=== PATIENT | female | born 1955 | race Caucasian/White ===

== ENCOUNTER 2017-05-09 09:59 | Day surgery (SDC) | payer BC, OTHER ==
[~2017-05-09 09:59] MED LIST: Buffered Lidocaine 0.9% SYRIN* 5 ML/SYR SYRINGE INTRADERM ONE
[2017-05-09] MEDS ORDERED: Proparacaine 0.5% OPHTH.SOL* 15 ML BTL ONE (13:06)
[2017-05-09] MEDS ORDERED: Lidocaine 1% MPF* 2 ML VIAL ONE (13:06)
[2017-05-09] MEDS ORDERED: Phenylephrine 2.5% OPTH.SOL* 2 ML BTL ONE (13:06)
[2017-05-09] MEDS ORDERED: Povidone Iodine 5% OPTH* 30 ML BTL ONE (13:06)
[2017-05-09] MEDS ORDERED: acetaZOLAMIDE TAB* 250 MG ONE (13:06)
[2017-05-09] MEDS ORDERED: Flurbiprofen 0.03% OPTH.SOL* 2.5 ML BTL ONE (13:06)
[2017-05-09] MEDS ORDERED: Buffered Lidocaine 0.9% SYRIN* 5 ML/SYR SYRINGE ONE (13:06)
[2017-05-09] MEDS ORDERED: Lidocaine 1% MPF wEPI 200,000* 30 ML SDV ONE (13:06)
[2017-05-09] MEDS ORDERED: Neomycin/Polymy/Dex OPTH.SUSP* MAXITROL 0.1% 5 ML ONE (13:06)
[2017-05-09] MEDS ORDERED: Cyclopentolate 1% OPTH.SOL* 2 ML BTL ONE (13:06)
[2017-05-09] MEDS ORDERED: Midazolam* 1 MG/ML 2 ML VIAL (2 MG) ONE (13:21)
[2017-05-09] MEDS ORDERED: Lidocaine 2% PF * 5 ML VIAL ONE (13:36)
[2017-05-09] MEDS ORDERED: Propofol* 10 MG/ML 20 ML BTL IV PUSH ONE (13:36)
[2017-05-09 14:09] VITALS: BP 127/69
--- NOTE | 2017-05-10 09:30 | OP ---
DATE OF OPERATION: 05/09/17 [facility] DATE OF : 53 SURGEON: Fabio Patricia MD PREOPERATIVE DIAGNOSIS: Cataract, left eye. POSTOPERATIVE DIAGNOSIS: Cataract, left eye. OPERATIVE PROCEDURE: Phacoemulsification, left eye with IOL. DESCRIPTION OF PROCEDURE: The patient was brought to the operating room after being given 1/2% Alcaine with epinephrine drops in the preoperative area. The eye was prepped and draped in the usual sterile fashion. Sterile drape and eyelid speculum were placed. Again, topical 1/2% Alcaine with epinephrine was given. A paracentesis incision was made at the 3 o'clock position with the No.75 blade. Clear cornea incision 2.2 x 2.2-mm was created at the 6 o'clock position starting at the anterior limbus using the 2.2-mm keratome. The anterior chamber was irrigated with 0.4 mL of 1% non-preservative intracameral lidocaine and filled with DisCoVisc. A capsulorrhexis was completed using the cystotome and the Utrata forceps. Hydrodissection was performed with balanced salt solution. The lens nucleus was removed with the Phacoemulsification handpiece without incident. Cortex was removed with the irrigation-aspiration handpiece. The capsular bag was re-inflated using DisCoVisc and an implant [id number] was inserted with the shooter, oriented to the 101-degree meridian. Horizontal reference gutierrez were made with the patient in the preoperative area in a seated position. The irrigation-aspiration handpiece was used to remove all residual DisCoVisc. The eye was refilled with balanced salt solution and the wound checked and found to be watertight. Topical Maxitrol drops were given. [id number]/[facility] #: [id number] MTDD
== END 2017-05-09 14:08 | disposition home or self-care (01) ==
LOC: OREAST 09:59
PROVIDERS: ATTEND Specialist
DX: H25.12 Age-related nuclear cataract, left eye (principal); I10 Essential (primary) hypertension; H35.373 Puckering of macula, bilateral; F17.210 Nicotine dependence, cigarettes, uncomplicated
CPT/HCPCS: A9270-GY; J2001; J2250; J2704; V2787

== ENCOUNTER 2017-05-16 09:32 | Day surgery (SDC) | payer BC, OTHER ==
[~2017-05-16 09:32] MED LIST changes: +Acetaminophen TAB* 325 MG PO PRN; -Buffered Lidocaine 0.9% SYRIN* 5 ML/SYR SYRINGE INTRADERM ONE; +Buffered Lidocaine 0.9% SYRIN* 5 ML/SYR SYRINGE ONE; +Cyclopentolate 1% OPTH.SOL* 2 ML BTL ONE; +Flurbiprofen 0.03% OPTH.SOL* 2.5 ML BTL ONE; +Lidocaine 1% MPF wEPI 200,000* 30 ML SDV ONE; +Lidocaine 1% MPF* 2 ML VIAL ONE; +Neomycin/Polymy/Dex OPTH.SUSP* MAXITROL 0.1% 5 ML ONE; +Phenylephrine 2.5% OPTH.SOL* 2 ML BTL ONE; +Povidone Iodine 5% OPTH* 30 ML BTL ONE; +Proparacaine 0.5% OPHTH.SOL* 15 ML BTL ONE; +acetaZOLAMIDE TAB* 250 MG ONE
[2017-05-16] MEDS ORDERED: Midazolam* 1 MG/ML 5 ML VIAL (5 MG) ONE (11:25)
[2017-05-16 12:24] VITALS: BP 113/83
--- NOTE | 2017-05-16 12:28 | OP ---
DATE OF OPERATION: 05/16/2017 [facility] DATE OF : 1955. SURGEON: Fabio Patricia M.D. PREOPERATIVE DIAGNOSIS: Cataract right eye. POSTOPERATIVE DIAGNOSIS: Cataract right eye. OPERATIVE PROCEDURE: Phacoemulsification right eye with IOL. DESCRIPTION OF PROCEDURE: The patient was brought to the operating room after being given 1/2% Alcaine with epinephrine drops in the preoperative area. The eye was prepped and draped in the usual sterile fashion. Sterile drape and eyelid speculum were placed. Again, topical 1/2% Alcaine with epinephrine was given. A paracentesis incision was made at the 9 o'clock position with the No.75 blade. Clear cornea incision 2.2 x 2.2-mm was created at the 12 o'clock position starting at the anterior limbus using the 2.2-mm keratome. The anterior chamber was irrigated with 0.4 mL of 1% non-preservative intracameral lidocaine and filled with DisCoVisc. A capsulorrhexis was completed using the cystotome and the Utrata forceps. Hydrodissection was performed with balanced salt solution. The lens nucleus was removed with the Phacoemulsification handpiece without incident. Cortex was removed with the irrigation-aspiration handpiece. The capsular bag was re-inflated using DisCoVisc and an [id number] [id number] implant was inserted with the shooter, oriented to the 82 degree meridian. Horizontal reference gutierrez were made with the patient in a seated position in the preoperative area. The irrigation-aspiration handpiece was used to remove all residual DisCoVisc. The eye was refilled with balanced salt solution and the wound checked and found to be watertight. Topical Maxitrol drops were given. [id number]/[facility] #: [id number] [facility]
[2017-05-16] MEDS ORDERED: Buffered Lidocaine 0.9% SYRIN* 5 ML/SYR SYRINGE INTRADERM ONE (13:51)
== END 2017-05-16 12:20 | disposition home or self-care (01) ==
LOC: OREAST 09:32
PROVIDERS: ATTEND Specialist
DX: H25.11 Age-related nuclear cataract, right eye (principal); F31.9 Bipolar disorder, unspecified; K21.9 Gastro-esophageal reflux disease without esophagitis; F17.210 Nicotine dependence, cigarettes, uncomplicated; F41.9 Anxiety disorder, unspecified; I10 Essential (primary) hypertension
CPT/HCPCS: A9270-GY; J2001; J2250; V2787

== ENCOUNTER 2019-03-13 11:25 | Emergency (ER) | payer BC, OTHER ==
[2019-03-13 11:44] VITALS: BP 147/87
--- NOTE | 2019-03-13 12:35 | UC ---
Skin Complaint HPI - HPI Summary HPI Summary: Patient hit her left forearm on a cupboard 4 days ago causing a skin tear approximately 2.5 cm x 1.0 cm on her left forearm. She has had a Band-Aid on since then however today noticed there was some pus at the site as well as surrounded by erythema. She denies any fever or chills. Tetanus shot is unknown. - History of Current Complaint Chief Complaint: UCSkin Time Seen by Provider: 03/13/19 12:21 Stated Complaint: WOUND CHECK Hx Obtained From: Patient ?: No Onset/Duration: Sudden Onset Skin Exposure Onset/Duration: Days Ago Timing: Constant Onset Severity: Mild Current Severity: Moderate Pain Intensity: 5 Location: Discrete - Left forearm. Character: Swelling, Redness, Painful - Areas mildly tender. Aggravating Factor(s): Nothing Alleviating Factor(s): Nothing Associated Signs & Symptoms: Positive: Drainage - No active drainage however there is some yellow purulent exudate on the wound itself., Tenderness - Mildly tender on palpation especially the erythema around the wound.. Negative: Red Streaks - Allergy/Home Medications Allergies/Adverse Reactions: Allergies Allergy/AdvReac Type Severity Reaction Status Date / Time No Known Allergies Allergy Verified 03/13/19 11:45 Home Medications: Home Medications Acetaminophen TAB* [Tylenol TAB*] 325 mg PO Q4H PRN 03/13/19 [History Confirmed 03/13/19] BuPROPion XL* [Bupropion XL*] 300 mg PO DAILY 03/13/19 [History Confirmed ] Rabeprazole Sodium [Aciphex] 20 mg PO DAILY 03/13/19 [History Confirmed 03/13/19 ] Venlafaxine HCl [Effexor XR-] 37.5 mg PO DAILY 03/13/19 [History Confirmed 03/13] PMH/Surg Hx/FS Hx/Imm Hx Previously Healthy: Yes - Surgical History Surgical History: Yes Surgery Procedure, Year, and Place: Cholecystectomy 2010 - Family History Known Family History: Positive: Non-Contributory - Social History Alcohol Use: Occasionally Substance Use Type: None Smoking Status (MU): Light Every Day Tobacco Smoker Amount Used/How Often: 5 sig/day - Immunization History Most Recent Tetanus Shot: 2004 Review of Systems All Other Systems Reviewed And Are Negative: Yes Skin: Positive: Other - Skin tear on the left forearm with some pus present on the wound and surrounded by erythema. No streaking. Motor: Positive: Negative Neurovascular: Positive: Negative Musculoskeletal: Positive: Negative Neurological: Positive: Negative Physical Exam Triage Information Reviewed: Yes Appearance: Well-Appearing, No Pain Distress, Well-Nourished Vital Signs: Initial Vital Signs Temp 99.3 F 03/13/19 11:38 Pulse 72 03/13/19 11:38 Resp 16 03/13/19 11:38 BP 147/87 03/13/19 11:38 Pulse Ox 97 03/13/19 11:38 Vital Signs Reviewed: Yes Musculoskeletal: Positive: Strength Intact, ROM Intact Neurological: Positive: Alert, Muscle Tone Normal Psychological: Positive: Normal Response To Family Skin: Positive: Other - Patient has a triangular shaped skin tear to the left lower forearm measuring approximately 2.5 cm x 1.0 cm. It does have some yellow exudate present but no active drainage. It is surrounded by approximately1.0 cm of erythema. There is no streaking. She has good peripheral pulses neuro sensation and capillary refill. Good finger strength of flexion extension against resistance good wrist and elbow stability. Course/Dx - Course Course Of Treatment: Patient is comfortable here. A Vaseline gauze then 4 x 4 gauze and then Covan wrapping was applied. The patient was given instructions on how to do that because she had some problems with gauze sticking to the wound. She was given Tdap tetanus immunization here. She is to change dressing daily and follow-up with her primary care provider if no improvement. We talked about what it might be necessary to go to the ER that would be if she gets red streaks up her arm, fever and chills or swelling of the arm. She is agreeable to this plan of action. I also started her on cephalexin twice a day for the cellulitis. - Diagnoses Provider Diagnosis: Cellulitis Discharge - Sign-Out/Discharge Documenting (check all that apply): Patient Departure All imaging exams completed and their final reports reviewed: No Studies - Discharge Plan Condition: Fair Disposition: HOME Prescriptions: Cephalexin CAP* [Keflex 500 CAP*] 500 mg PO BID 10 Days #20 cap Patient Education Materials: Cellulitis (DC) Referrals: Alicia Petit MD [Primary Care Provider] - Additional Instructions: You were given a TD Tetanus immunization which is good for 8-10 years. Change dressing daily. Apply the Vaseline gauze or nonstick gauze to the area and then a 4" x 4" gauze on top of that and then the Coban wrapping. Follow-up with your primary care provider if no improvement in 3 or 4 days. Deathly go to the emergency room if you develop any fever, chills or red streaks up her arm. - Billing Disposition and Condition Condition: FAIR Disposition: Home
[2019-03-13] MEDS ORDERED: Tetan/Diph/Pertus SYR(Tdap)* 0.5 ML SYR(BOOSTRIX) use SYR IM ONE (12:36)
== END 2019-03-13 12:45 | disposition home or self-care (01) ==
LOC: UCEAST 11:25
DX: L03.114 Cellulitis of left upper limb (principal); Z23 Encounter for immunization; F17.210 Nicotine dependence, cigarettes, uncomplicated
CPT/HCPCS: 90471; 90715; 99212; G0463

== ENCOUNTER 2021-07-19 07:25 | Inpatient (IN) ==
[~2021-07-19 07:25] MED LIST changes: -Acetaminophen TAB* 325 MG PO PRN; -Buffered Lidocaine 0.9% SYRIN* 5 ML/SYR SYRINGE ONE; +Buffered Lidocaine 1% SYRIN 1 ml INTRADERM ONE; -Cyclopentolate 1% OPTH.SOL* 2 ML BTL ONE; -Flurbiprofen 0.03% OPTH.SOL* 2.5 ML BTL ONE; +Lactated Ringers 1000 ml BAG 1,000 ML IV SCH; -Lidocaine 1% MPF wEPI 200,000* 30 ML SDV ONE; -Lidocaine 1% MPF* 2 ML VIAL ONE; -Neomycin/Polymy/Dex OPTH.SUSP* MAXITROL 0.1% 5 ML ONE; -Phenylephrine 2.5% OPTH.SOL* 2 ML BTL ONE; -Povidone Iodine 5% OPTH* 30 ML BTL ONE; -Proparacaine 0.5% OPHTH.SOL* 15 ML BTL ONE; -acetaZOLAMIDE TAB* 250 MG ONE
[2021-07-19] MEDS ORDERED: Midazolam 2 mg/2 ml VIAL 1 mg/ml 2 ml VIAL (2 mg) ONE (07:54)
[2021-07-19] MEDS ORDERED: Lidocaine 2% PF 5 ML VIAL ONE (07:54)
[2021-07-19] MEDS ORDERED: Propofol 10 MG/ML 20 ML BTL ONE (07:54)
[2021-07-19] MEDS ORDERED: ceFAZolin 2 GM in NS PREMIX 2 GM/100 ML BAG IVPB ONE (07:55)
[2021-07-19] MEDS ORDERED: Buffered Lidocaine 1% SYRIN 1 ml INTRADERM ONE (07:55)
[2021-07-19] MEDS ORDERED: EPHEDrine (Pressors) 50 MG/ML VIAL ONE ×3 (08:06→11:24)
[2021-07-19] MEDS ORDERED: ROPIVACAINE 5 MG/ML 30 ML BTL (0.5%) ONE (09:22)
[2021-07-19] MEDS ORDERED: fentaNYL 100 mcg/2 ml 50 MCG/ML VIAL ONE ×2 (09:43→12:32)
[2021-07-19] MEDS ORDERED: Ketamine HCL 50 mg/ml 10 ml VIAL (500 MG) ONE (10:01)
[2021-07-19] MEDS ORDERED: Ondansetron 4 mg VIAL 2 MG/ML 2 ml VIAL ONE (10:15)
[2021-07-19] MEDS ORDERED: Dexamethasone IV 4 MG/ML VIAL 1 ml VIAL ONE (10:15)
[2021-07-19] MEDS ORDERED: Phenylephrine 40 mcg/mL 10mL (400mcg) SYRINGE ONE ×2 (10:54→11:24)
[2021-07-19] MEDS ORDERED: Magnesium Hydroxide LIQ 30 ML UDC PO PRN (11:34)
[2021-07-19] MEDS ORDERED: Ondansetron 4 mg VIAL 2 MG/ML 2 ml VIAL IV PRN ×2 (11:34→11:41)
[2021-07-19] MEDS ORDERED: diPHENhydraMINE 25 mg TAB PO PRN (11:34)
[2021-07-19] MEDS ORDERED: Ondansetron ODT 4 mg TAB 4 MG TAB PO PRN (11:34)
[2021-07-19] MEDS ORDERED: diPHENhydraMINE IV 50 MG/ML 1 ml VIAL (BENADRYL) IV PRN ×2 (11:34→11:41)
[2021-07-19] MEDS ORDERED: Lactulose 30 ml UDC PO PRN (11:34)
[2021-07-19] MEDS ORDERED: HYDROcodone/ACETAMIN 5/325 mg TAB PO PRN (11:41)
[2021-07-19] MEDS ORDERED: Metoclopramide 5 MG/ML VIAL (10 mg) IV PRN (11:41)
[2021-07-19] MEDS ORDERED: HYDROmorphone 1 MG/1 ML SYRINGE IV PRN (11:41)
[2021-07-19] MEDS ORDERED: Naloxone 0.4 mg VIAL 0.4 mg/ml 1 ml VIAL IV PRN (11:41)
[2021-07-19] MEDS: fentaNYL 100 mcg/2 ml 50 MCG/ML VIAL IV PRN ×4 (12:32→13:17)
[2021-07-19] MEDS ORDERED: HYDROcodone/ACETAMIN 5/325 mg TAB ONE (13:09)
[2021-07-19] MEDS: Lactated Ringers 1000 ml BAG 1,000 ML IV SCH (13:49)
[2021-07-19] MEDS: Morphine 2 MG/ML SYRINGE IV PRN ×2 (17:26→22:40)
[2021-07-19] MEDS: ceFAZolin 1 GM ADVAN 1 GM in NS 0.9% 50 ML 50 ML IVPB SCH (17:27)
[2021-07-19] MEDS: Magnesium Hydroxide LIQ 30 ML UDC PO SCH (20:31)
[2021-07-20] MEDS: ceFAZolin 1 GM ADVAN 1 GM in NS 0.9% 50 ML 50 ML IVPB SCH ×2 (02:11→10:17)
[2021-07-20] MEDS: Lactated Ringers 1000 ml BAG 1,000 ML IV SCH (04:45)
[2021-07-20 06:59] LABS: Hematocrit 30 % (35-47); Hemoglobin 10.3 g/dL (12.0-16.0); Mean Platelet Volume 8.7 fL (7.4-10.4); Platelet Count 203 10^3/uL (150-450)
[2021-07-20 07:00] LABS: Calcium 9.2 mg/dL (8.6-10.3); EGFR African American 51.3 (>60); EGFR Non-African American 42.4 (>60); Potassium 4.2 mmol/L (3.5-5.0)
[2021-07-20] MEDS: Magnesium Hydroxide LIQ 30 ML UDC PO SCH ×2 (08:49→20:49)
[2021-07-20] MEDS: Vitamin THERAPEUTIC TAB PO SCH (08:49)
[2021-07-21 05:54] LABS: Hematocrit 29 % (35-47); Hemoglobin 9.7 g/dL (12.0-16.0); Platelet Count 201 10^3/uL (150-450)
[2021-07-21 06:06] LABS: Calcium 8.9 mg/dL (8.6-10.3); EGFR African American 61.9 (>60); EGFR Non-African American 51.1 (>60); Potassium 4.5 mmol/L (3.5-5.0)
[2021-07-21] MEDS: Vitamin THERAPEUTIC TAB PO SCH (08:13)
[2021-07-21] MEDS: Magnesium Hydroxide LIQ 30 ML UDC PO SCH ×2 (08:25→21:44)
[2021-07-21] MEDS ORDERED: Flu vaccine *QUAD* 2021-22* 0.5 ML SYRINGE IM ONE (09:00)
[2021-07-22 06:46] LABS: Hematocrit 28 % (35-47); Hemoglobin 9.6 g/dL (12.0-16.0); Mean Platelet Volume 7.9 fL (7.4-10.4); Platelet Count 234 10^3/uL (150-450)
[2021-07-22] MEDS: Magnesium Hydroxide LIQ 30 ML UDC PO SCH ×2 (09:18→20:36)
[2021-07-22] MEDS: Vitamin THERAPEUTIC TAB PO SCH (09:18)
[2021-07-23 06:38] LABS: Hematocrit 27 % (35-47); Hemoglobin 9.5 g/dL (12.0-16.0); Mean Platelet Volume 7.7 fL (7.4-10.4); Platelet Count 253 10^3/uL (150-450)
[2021-07-23] MEDS: Magnesium Hydroxide LIQ 30 ML UDC PO SCH ×3 (08:29→20:42)
[2021-07-23] MEDS: Vitamin THERAPEUTIC TAB PO SCH (08:30)
[2021-07-24 05:05] LABS: Hematocrit 28 % (35-47); Hemoglobin 9.3 g/dL (12.0-16.0); Mean Platelet Volume 7.4 fL (7.4-10.4); Platelet Count 317 10^3/uL (150-450)
[2021-07-24] MEDS: Magnesium Hydroxide LIQ 30 ML UDC PO SCH ×2 (08:13→21:53)
[2021-07-24] MEDS: Vitamin THERAPEUTIC TAB PO SCH (08:14)
[2021-07-25 07:12] VITALS: BP 129/70
[2021-07-25] MEDS: Vitamin THERAPEUTIC TAB PO SCH (08:06)
[2021-07-25] MEDS: Magnesium Hydroxide LIQ 30 ML UDC PO SCH (08:06)
== END 2021-07-25 11:45 | DRG 470 ==
LOC: OR 07:25 → SSU 07:25
PROVIDERS: ADMIT Orthopaedic Surgery Adult Reconstructive Orthopaedic Surgery; ATTEND Orthopaedic Surgery Adult Reconstructive Orthopaedic Surgery

== ENCOUNTER 2021-09-23 16:58 | Inpatient (IN) ==
[2021-09-23 17:59] LABS: ABS Basophils 0.1 10^3/ul (0-0.2); ABS Eosinophils 0.8 10^3/ul (0-0.6); ABS Lymphocytes 3.9 10^3/ul (1.0-4.8); ABS Monocytes 0.7 10^3/ul (0-0.8); ABS Neutrophils 3.7 10^3/ul (1.5-7.7); Eosinophil % 8.4 %; Hematocrit 35 % (35-47); Hemoglobin 11.8 g/dL (12.0-16.0); Lymphocyte % 42.5 %; Mean Corpuscular HGB Conc 34 g/dL (31-36); Mean Corpuscular Hemoglobin 32 pg (27-31); Mean Corpuscular Volume 94 fL (80-97); Mean Platelet Volume 8.3 fL (7.4-10.4); Nucleated Red Blood Cells % 0.1; Platelet Count 277 10^3/uL (150-450); Red Blood Count 3.72 10^6 /uL (3.70-4.87); Red Cell Distribution Width 13 % (10-15); White Blood Count 9.2 10^3/uL (3.5-10.8)
[2021-09-23 18:05] LABS: Urine Appearance Clear; Urine Bilirubin Negative (Negative); Urine Blood Negative (Negative); Urine Color Straw; Urine Glucose Negative (Negative); Urine Ketones Negative (Negative); Urine Nitrite Negative (Negative); Urine Protein Negative (Negative); Urine Specific Gravity 1.003 (1.002-1.030); Urine Urobilinogen Negative (Negative)
[2021-09-23 18:22] LABS: ALT 13 U/L (7-52); AST 17 U/L (13-39); Albumin/Globulin Ratio 1.6 (1-3); Alkaline Phosphatase 71 U/L (35-149); Anion Gap 7 mmol/L (2-11); Blood Urea Nitrogen 14 mg/dL (6-24); CO2 Carbon Dioxide 22 mmol/L (22-32); Calcium 9.5 mg/dL (8.6-10.3); Chloride 105 mmol/L (101-111); Globulin 2.5 g/dL (2-4); Glucose 95 mg/dL (70-100); Potassium 4.3 mmol/L (3.5-5.0); Sodium 134 mmol/L (135-145); Total Protein 6.5 g/dL (6.4-8.9)
[2021-09-23 18:36] LABS: Urine Benzodiazepine Screen None Detected (None Detect); Urine Cannabinoids Screen None Detected (None Detect); Urine Opiates Screen None Detected (None Detect)
[2021-09-23 18:47] LABS: Rapid COVID-19 Molecular Undetected (Undetected)
[2021-09-23 18:48] LABS: Acetaminophen < 15 mcg/mL; Alcohol, S < 13 mg/dL (<13); Salicylate < 2.50 mg/dL (<30)
[2021-09-23 19:02] LABS: TSH Ultra Thyroid Stim Horm 1.17 mcIU/mL (0.34-5.60)
[2021-09-24 07:59] LABS: HDL Cholesterol 46.9 mg/dL
[2021-09-24] MEDS: Vitamin THERAPEUTIC TAB PO SCH (09:22)
[2021-09-24] MEDS: Senna TAB 8.6 mg TAB PO SCH ×2 (09:22→19:22)
[2021-09-25] MEDS: Vitamin THERAPEUTIC TAB PO SCH (07:55)
[2021-09-25] MEDS: Senna TAB 8.6 mg TAB PO SCH ×2 (07:57→21:32)
[2021-09-26 08:01] LABS: Albumin 4.4 g/dL (3.2-5.2); Albumin/Globulin Ratio 1.6 (1-3); Calcium 10.5 mg/dL (8.6-10.3); Globulin 2.8 g/dL (2-4); Potassium 3.9 mmol/L (3.5-5.0); Total Bilirubin 0.4 mg/dL (0.2-1.0); Total Protein 7.2 g/dL (6.4-8.9)
[2021-09-26] MEDS: Vitamin THERAPEUTIC TAB PO SCH (08:09)
[2021-09-26] MEDS: Senna TAB 8.6 mg TAB PO SCH ×2 (08:09→21:47)
[2021-09-26 08:24] LABS: Lithium 0.21 mmol/L (0.6-1.2)
[2021-09-26 14:19] LABS: TSH Ultra Thyroid Stim Horm 1.72 mcIU/mL (0.34-5.60)
[2021-09-26 20:14] LABS: Hematocrit 40 % (35-47); Hemoglobin 13.1 g/dL (12.0-16.0); Mean Corpuscular HGB Conc 33 g/dL (31-36); Mean Corpuscular Hemoglobin 31 pg (27-31); Mean Corpuscular Volume 95 fL (80-97); Mean Platelet Volume 8.5 fL (7.4-10.4); Platelet Count 356 10^3/uL (150-450); Red Blood Count 4.23 10^6 /uL (3.70-4.87); Red Cell Distribution Width 13 % (10-15); White Blood Count 13.1 10^3/uL (3.5-10.8)
[2021-09-27] MEDS: Vitamin THERAPEUTIC TAB PO SCH (08:29)
[2021-09-27] MEDS: Senna TAB 8.6 mg TAB PO SCH ×2 (08:29→20:54)
[2021-09-28] MEDS: Senna TAB 8.6 mg TAB PO SCH ×2 (09:15→22:13)
[2021-09-28] MEDS: Vitamin THERAPEUTIC TAB PO SCH (09:16)
[2021-09-28] MEDS ORDERED: OLANzapine 5 mg TAB*ODT ONE (11:50)
[2021-09-28 16:31] LABS: ABS Basophils 0.1 10^3/ul (0-0.2); ABS Eosinophils 0.4 10^3/ul (0-0.6); ABS Lymphocytes 3.5 10^3/ul (1.0-4.8); ABS Monocytes 0.5 10^3/ul (0-0.8); ABS Neutrophils 3.1 10^3/ul (1.5-7.7); Eosinophil % 5.4 %; Hematocrit 37 % (35-47); Hemoglobin 12.6 g/dL (12.0-16.0); Lymphocyte % 45.6 %; Mean Corpuscular HGB Conc 34 g/dL (31-36); Mean Corpuscular Hemoglobin 32 pg (27-31); Mean Corpuscular Volume 95 fL (80-97); Mean Platelet Volume 7.8 fL (7.4-10.4); Nucleated Red Blood Cells % 0.1; Platelet Count 321 10^3/uL (150-450); Red Blood Count 3.92 10^6 /uL (3.70-4.87); Red Cell Distribution Width 13 % (10-15); White Blood Count 7.6 10^3/uL (3.5-10.8)
[2021-09-28 17:25] LABS: Albumin 4.2 g/dL (3.2-5.2); Albumin/Globulin Ratio 1.7 (1-3); Calcium 10.4 mg/dL (8.6-10.3); Globulin 2.5 g/dL (2-4); Total Bilirubin 0.2 mg/dL (0.2-1.0); Total Protein 6.7 g/dL (6.4-8.9)
[2021-09-29] MEDS: Vitamin THERAPEUTIC TAB PO SCH (09:48)
[2021-09-29] MEDS: Senna TAB 8.6 mg TAB PO SCH ×2 (09:48→20:17)
[2021-09-29 17:22] LABS: Urine Appearance Clear; Urine Bilirubin Negative (Negative); Urine Blood Negative (Negative); Urine Color Straw; Urine Glucose Negative (Negative); Urine Ketones Negative (Negative); Urine Nitrite Negative (Negative); Urine Protein Negative (Negative); Urine Specific Gravity 1.002 (1.002-1.030); Urine Urobilinogen Negative (Negative)
[2021-09-30] MEDS: Senna TAB 8.6 mg TAB PO SCH ×2 (08:51→19:52)
[2021-09-30] MEDS: Vitamin THERAPEUTIC TAB PO SCH (08:51)
[2021-10-01] MEDS: Vitamin THERAPEUTIC TAB PO SCH (07:36)
[2021-10-01] MEDS: Senna TAB 8.6 mg TAB PO SCH ×2 (07:36→20:48)
[2021-10-02] MEDS: Senna TAB 8.6 mg TAB PO SCH ×2 (09:50→20:18)
[2021-10-02] MEDS: Vitamin THERAPEUTIC TAB PO SCH (09:51)
[2021-10-02] MEDS: Al Hydrox/Mg Hydrox/Simet LIQ 30 ML UDC PO PRN ×2 (09:53→13:32)
[2021-10-03] MEDS: Vitamin THERAPEUTIC TAB PO SCH (09:00)
[2021-10-03] MEDS: Senna TAB 8.6 mg TAB PO SCH ×2 (09:00→19:59)
[2021-10-03] MEDS ORDERED: Polyethylene Glycol 3350 17 GM PACKET PO ONE (15:08)
[2021-10-04] MEDS: Senna TAB 8.6 mg TAB PO SCH ×2 (08:47→20:33)
[2021-10-04] MEDS: Vitamin THERAPEUTIC TAB PO SCH (08:47)
[2021-10-05] MEDS: Senna TAB 8.6 mg TAB PO SCH (08:37)
[2021-10-05] MEDS: Vitamin THERAPEUTIC TAB PO SCH (08:37)
[2021-10-05] MEDS: Al Hydrox/Mg Hydrox/Simet LIQ 30 ML UDC PO PRN (10:09)
[2021-10-05 10:53] VITALS: BP 136/71
[2021-10-05 12:48] LABS: Rapid COVID-19 Molecular Undetected (Undetected)
== END 2021-10-05 14:35 | DRG 885 ==
LOC: ED 16:58 → BSU 09-24 00:17
PROVIDERS: ADMIT Psychiatry & Neurology Psychiatry; ATTEND Psychiatry & Neurology Psychiatry

== ENCOUNTER 2022-02-08 10:40 | Inpatient (IN) ==
[2022-02-08 11:18] LABS: ABS Basophils 0.1 10^3/ul (0-0.2); ABS Eosinophils 0.1 10^3/ul (0-0.6); ABS Lymphocytes 2.8 10^3/ul (1.0-4.8); ABS Monocytes 0.9 10^3/ul (0-0.8); ABS Neutrophils 5.9 10^3/ul (1.5-7.7); Eosinophil % 1.3 %; Hematocrit 42 % (35-47); Hemoglobin 14.5 g/dL (12.0-16.0); Lymphocyte % 28.8 %; Mean Corpuscular HGB Conc 35 g/dL (31-36); Mean Corpuscular Hemoglobin 32 pg (27-31); Mean Corpuscular Volume 93 fL (80-97); Mean Platelet Volume 8.2 fL (7.4-10.4); Platelet Count 318 10^3/uL (150-450); Red Cell Distribution Width 14 % (10-15); White Blood Count 9.9 10^3/uL (3.5-10.8)
[2022-02-08 11:30] LABS: Urine Appearance Clear; Urine Bilirubin Negative (Negative); Urine Blood Negative (Negative); Urine Color Yellow; Urine Glucose Negative (Negative); Urine Ketones Negative (Negative); Urine Nitrite Negative (Negative); Urine Protein Negative (Negative); Urine Specific Gravity 1.004 (1.002-1.030); Urine Urobilinogen Negative (Negative)
[2022-02-08 12:00] LABS: Urine Benzodiazepine Screen None Detected (None Detect); Urine Cannabinoids Screen None Detected (None Detect); Urine Opiates Screen None Detected (None Detect)
[2022-02-08 12:08] LABS: ALT 20 U/L (7-52); AST 16 U/L (13-39); Acetaminophen < 15 mcg/mL; Albumin 4.4 g/dL (3.2-5.2); Albumin/Globulin Ratio 2.1 (1-3); Alcohol, S < 13 mg/dL (<13); Alkaline Phosphatase 69 U/L (35-149); Anion Gap 6 mmol/L (2-11); Blood Urea Nitrogen 17 mg/dL (6-24); CO2 Carbon Dioxide 24 mmol/L (22-32); Calcium 10.3 mg/dL (8.6-10.3); Chloride 104 mmol/L (101-111); Globulin 2.1 g/dL (2-4); Glucose 70 mg/dL (70-100); Lithium 0.41 mmol/L (0.6-1.2); Potassium 4.8 mmol/L (3.5-5.0); Salicylate < 2.50 mg/dL (<30); Sodium 134 mmol/L (135-145); Total Protein 6.5 g/dL (6.4-8.9); eGFR CKD-EPI 54.5 (>60)
[2022-02-08 12:21] LABS: TSH Ultra Thyroid Stim Horm 1.61 mcIU/mL (0.34-5.60)
[2022-02-08] MEDS ORDERED: Polyethylene Glycol 3350 17 GM PACKET PO PRN (14:50)
[2022-02-08] MEDS: Senna TAB 8.6 mg TAB PO SCH (23:49)
[2022-02-09] MEDS: Enoxaparin 40 MG/0.4 ML SYR SUBCUT SCH ×2 (04:50→20:24)
[2022-02-09] MEDS: Senna TAB 8.6 mg TAB PO SCH ×2 (08:30→20:21)
[2022-02-09] MEDS: Venlafaxine XR 75 mg PO SCH (13:32)
[2022-02-10] MEDS: Senna TAB 8.6 mg TAB PO SCH ×2 (07:59→21:16)
[2022-02-10] MEDS: Venlafaxine XR 75 mg PO SCH (07:59)
[2022-02-10] MEDS: Enoxaparin 40 MG/0.4 ML SYR SUBCUT SCH (21:22)
[2022-02-11] MEDS: Venlafaxine XR 75 mg PO SCH (09:45)
[2022-02-11] MEDS: Senna TAB 8.6 mg TAB PO SCH ×2 (09:45→22:21)
[2022-02-11] MEDS: Enoxaparin 40 MG/0.4 ML SYR SUBCUT SCH (22:14)
[2022-02-12] MEDS: Senna TAB 8.6 mg TAB PO SCH (08:19)
[2022-02-12] MEDS: Venlafaxine XR 75 mg PO SCH (08:19)
[2022-02-12 11:10] VITALS: BP 137/79
== END 2022-02-12 15:01 | disposition short-term general hospital (02) | DRG 885 ==
LOC: ED 10:40 → SUATTDRO 14:52 → EDHOLD 14:52 → SSU 15:53
PROVIDERS: ADMIT Hospitalist; ATTEND Internal Medicine

== ENCOUNTER 2022-02-12 15:08 | Inpatient (IN) ==
[2022-02-12] MEDS ORDERED: Polyethylene Glycol 3350 17 GM PACKET PO PRN (16:35)
[2022-02-12] MEDS ORDERED: Enoxaparin 40 MG/0.4 ML SYR SUBCUT SCH (17:00)
[2022-02-12] MEDS ORDERED: Calcium Carb (TUMS) 500 mg CHEW TAB PO PRN (17:37)
[2022-02-12] MEDS: Senna TAB 8.6 mg TAB PO SCH (21:32)
[2022-02-12] MEDS: Enoxaparin 40 MG/0.4 ML SYR SUBCUT SCH (21:33)
[2022-02-13] MEDS: Venlafaxine XR 75 mg PO SCH (08:29)
[2022-02-13] MEDS: Senna TAB 8.6 mg TAB PO SCH ×2 (08:29→20:39)
[2022-02-13] MEDS: Enoxaparin 40 MG/0.4 ML SYR SUBCUT SCH (20:38)
[2022-02-14 07:16] VITALS: BP 144/89
[2022-02-14] MEDS: Senna TAB 8.6 mg TAB PO SCH (09:46)
[2022-02-14] MEDS: Venlafaxine XR 75 mg PO SCH (09:47)
== END 2022-02-14 14:57 | DRG 885 ==
LOC: SUATTDRO 15:08 → SSU 15:08
PROVIDERS: ADMIT Student in an Organized Health Care Education/Training Program; ATTEND Internal Medicine

== ENCOUNTER 2022-03-16 13:02 | Inpatient (IN) ==
[2022-03-16] MEDS ORDERED: Ondansetron 4 mg VIAL 2 MG/ML 2 ml VIAL IV PRN (17:28)
[2022-03-16] MEDS: Enoxaparin 40 MG/0.4 ML SYR SUBCUT SCH (18:22)
[2022-03-16] MEDS: Senna TAB 8.6 mg TAB PO SCH (21:01)
[2022-03-17] MEDS: Calcium Carb (TUMS) 500 mg CHEW TAB PO PRN (05:14)
[2022-03-17] MEDS: Venlafaxine XR 75 mg PO SCH (08:29)
[2022-03-17] MEDS: Senna TAB 8.6 mg TAB PO SCH ×2 (08:30→21:02)
[2022-03-17] MEDS: Enoxaparin 40 MG/0.4 ML SYR SUBCUT SCH (17:19)
[2022-03-18] MEDS: Venlafaxine XR 75 mg PO SCH (08:18)
[2022-03-18] MEDS: Senna TAB 8.6 mg TAB PO SCH ×2 (08:19→21:04)
[2022-03-18] MEDS: Enoxaparin 40 MG/0.4 ML SYR SUBCUT SCH (17:09)
[2022-03-19] MEDS: Venlafaxine XR 75 mg PO SCH (09:41)
[2022-03-19] MEDS: Senna TAB 8.6 mg TAB PO SCH ×2 (09:42→21:06)
[2022-03-19] MEDS: Enoxaparin 40 MG/0.4 ML SYR SUBCUT SCH (18:18)
[2022-03-20] MEDS: Venlafaxine XR 75 mg PO SCH (08:45)
[2022-03-20] MEDS: Senna TAB 8.6 mg TAB PO SCH ×2 (08:45→20:45)
[2022-03-20] MEDS: Enoxaparin 40 MG/0.4 ML SYR SUBCUT SCH (18:12)
[2022-03-21] MEDS: Senna TAB 8.6 mg TAB PO SCH ×2 (09:52→21:03)
[2022-03-21] MEDS: Venlafaxine XR 75 mg PO SCH (09:53)
[2022-03-21] MEDS: Enoxaparin 40 MG/0.4 ML SYR SUBCUT SCH (18:43)
[2022-03-22] MEDS: Venlafaxine XR 75 mg PO SCH (07:35)
[2022-03-22] MEDS: Senna TAB 8.6 mg TAB PO SCH ×2 (07:35→21:34)
[2022-03-22] MEDS: Enoxaparin 40 MG/0.4 ML SYR SUBCUT SCH (21:35)
[2022-03-23] MEDS: Senna TAB 8.6 mg TAB PO SCH ×2 (08:45→20:49)
[2022-03-23] MEDS: Venlafaxine XR 75 mg PO SCH (08:45)
[2022-03-23] MEDS: Polyethylene Glycol 3350 17 GM PACKET PO PRN (14:01)
[2022-03-23] MEDS: Enoxaparin 40 MG/0.4 ML SYR SUBCUT SCH (18:27)
[2022-03-24] MEDS: Senna TAB 8.6 mg TAB PO SCH ×2 (08:19→20:35)
[2022-03-24] MEDS: Venlafaxine XR 75 mg PO SCH (08:21)
[2022-03-24] MEDS: Polyethylene Glycol 3350 17 GM PACKET PO PRN (09:21)
[2022-03-24] MEDS: Enoxaparin 40 MG/0.4 ML SYR SUBCUT SCH (17:28)
[2022-03-25] MEDS: Venlafaxine XR 75 mg PO SCH (08:35)
[2022-03-25] MEDS: Senna TAB 8.6 mg TAB PO SCH ×2 (08:36→20:16)
[2022-03-25] MEDS ORDERED: Magnesium Hydroxide LIQ 30 ML UDC PO PRN (09:03)
[2022-03-25] MEDS: Enoxaparin 40 MG/0.4 ML SYR SUBCUT SCH (18:37)
[2022-03-26] MEDS: Polyethylene Glycol 3350 17 GM PACKET PO PRN (07:29)
[2022-03-26] MEDS: Senna TAB 8.6 mg TAB PO SCH ×2 (07:29→20:44)
[2022-03-26] MEDS: Venlafaxine XR 75 mg PO SCH (07:30)
[2022-03-26] MEDS: Enoxaparin 40 MG/0.4 ML SYR SUBCUT SCH (18:34)
[2022-03-27] MEDS: Polyethylene Glycol 3350 17 GM PACKET PO PRN (07:52)
[2022-03-27] MEDS: Venlafaxine XR 75 mg PO SCH (07:53)
[2022-03-27] MEDS: Senna TAB 8.6 mg TAB PO SCH ×2 (07:53→21:26)
[2022-03-27] MEDS: Calcium Carb (TUMS) 500 mg CHEW TAB PO PRN (10:52)
[2022-03-27] MEDS: Enoxaparin 40 MG/0.4 ML SYR SUBCUT SCH (17:25)
[2022-03-28] MEDS: Venlafaxine XR 75 mg PO SCH (07:45)
[2022-03-28] MEDS: Senna TAB 8.6 mg TAB PO SCH ×2 (07:46→21:54)
[2022-03-28] MEDS: Enoxaparin 40 MG/0.4 ML SYR SUBCUT SCH (16:14)
[2022-03-29] MEDS: Senna TAB 8.6 mg TAB PO SCH ×2 (08:01→20:24)
[2022-03-29] MEDS: Venlafaxine XR 75 mg PO SCH (08:02)
[2022-03-29] MEDS: Enoxaparin 40 MG/0.4 ML SYR SUBCUT SCH (13:53)
[2022-03-30] MEDS: Senna TAB 8.6 mg TAB PO SCH ×2 (08:28→21:25)
[2022-03-30] MEDS: Venlafaxine XR 75 mg PO SCH (08:28)
[2022-03-30] MEDS: Enoxaparin 40 MG/0.4 ML SYR SUBCUT SCH (14:26)
[2022-03-31] MEDS: Venlafaxine XR 75 mg PO SCH (08:39)
[2022-03-31] MEDS: Senna TAB 8.6 mg TAB PO SCH ×2 (08:39→20:58)
[2022-03-31] MEDS: Enoxaparin 40 MG/0.4 ML SYR SUBCUT SCH (14:31)
[2022-04-01] MEDS: Senna TAB 8.6 mg TAB PO SCH ×2 (08:33→21:05)
[2022-04-01] MEDS: Venlafaxine XR 75 mg PO SCH (08:33)
[2022-04-01] MEDS: Enoxaparin 40 MG/0.4 ML SYR SUBCUT SCH (13:47)
[2022-04-02] MEDS: Senna TAB 8.6 mg TAB PO SCH ×2 (08:38→20:05)
[2022-04-02] MEDS: Venlafaxine XR 75 mg PO SCH (08:39)
[2022-04-02] MEDS: Enoxaparin 40 MG/0.4 ML SYR SUBCUT SCH (13:23)
[2022-04-02] MEDS ORDERED: Benzocaine/Menthol LOZ ONE (21:08)
[2022-04-02] MEDS: Benzocaine/Menthol LOZ MT PRN (21:10)
[2022-04-03] MEDS: Benzocaine/Menthol LOZ MT PRN ×5 (07:20→22:11)
[2022-04-03] MEDS: Venlafaxine XR 75 mg PO SCH (10:16)
[2022-04-03] MEDS: Senna TAB 8.6 mg TAB PO SCH ×2 (10:20→22:08)
[2022-04-03] MEDS: Enoxaparin 40 MG/0.4 ML SYR SUBCUT SCH (14:57)
[2022-04-04] MEDS: Benzocaine/Menthol LOZ MT PRN ×5 (06:39→20:49)
[2022-04-04] MEDS: Venlafaxine XR 75 mg PO SCH (08:50)
[2022-04-04] MEDS: Senna TAB 8.6 mg TAB PO SCH ×2 (08:51→20:50)
[2022-04-04] MEDS: Enoxaparin 40 MG/0.4 ML SYR SUBCUT SCH (14:47)
[2022-04-05] MEDS: Benzocaine/Menthol LOZ MT PRN ×6 (04:29→21:08)
[2022-04-05] MEDS: Venlafaxine XR 75 mg PO SCH (09:56)
[2022-04-05] MEDS: Senna TAB 8.6 mg TAB PO SCH ×2 (09:57→21:08)
[2022-04-05 13:02] LABS: Rapid COVID-19 Molecular Undetected (Undetected)
[2022-04-05] MEDS: Enoxaparin 40 MG/0.4 ML SYR SUBCUT SCH (14:29)
[2022-04-06] MEDS: Benzocaine/Menthol LOZ MT PRN ×4 (07:17→20:10)
[2022-04-06] MEDS: Senna TAB 8.6 mg TAB PO SCH ×2 (09:45→20:05)
[2022-04-06] MEDS: Venlafaxine XR 75 mg PO SCH (09:45)
[2022-04-06] MEDS: Enoxaparin 40 MG/0.4 ML SYR SUBCUT SCH (14:06)
[2022-04-07] MEDS: Benzocaine/Menthol LOZ MT PRN (05:07)
[2022-04-07] MEDS: Venlafaxine XR 75 mg PO SCH (08:04)
[2022-04-07] MEDS: Senna TAB 8.6 mg TAB PO SCH (08:05)
[2022-04-07 10:16] VITALS: BP 121/78
== END 2022-04-07 12:10 | DRG 885 ==
LOC: SUATTDRO 16:30 → MEDTELE 16:30
PROVIDERS: ADMIT Internal Medicine; ATTEND Internal Medicine

== ENCOUNTER 2024-12-02 20:46 | Observation (INO) ==
[2024-12-02 21:40] LABS: ABS Basophils 0.1 10^3/uL (0.0-0.1); ABS Eosinophils 0.7 10^3/uL (0.0-0.5); ABS Lymphocytes 3.1 10^3/uL (1.0-4.8); ABS Monocytes 0.7 10^3/uL (0.0-0.9); ABS Neutrophils 7.9 10^3/uL (1.5-7.6); Eosinophil % 5.2 %; Hematocrit 40.2 % (35-45); Hemoglobin 13.4 g/dL (11.5-14.3); Lymphocyte % 24.6 %; Mean Corpuscular Hemoglobin 34.1 pg (27-33); Mean Corpuscular Hgb Conc 33.5 g/dL (31-36); Mean Corpuscular Volume 101.8 fL (80-97); Mean Platelet Volume 9.6 fL (7.5-11.2); Platelet Count 277 10^3/uL (150-450); Red Blood Count 3.95 10^6/uL (3.63-4.92); Red Cell Distribution Width 12.4 % (12-17); White Blood Count 12.5 10^3/uL (3.8-11.8)
[2024-12-02 21:49] LABS: INR 1.03 (0.85-1.14)
[2024-12-02 22:10] LABS: High Sens Troponin Baseline 4 pg/mL (<15)
[2024-12-02 22:29] LABS: ALT 13 U/L (7-52); Albumin 4.4 g/dL (3.5-5.7); Albumin/Globulin Ratio 1.8 (1-3); Alkaline Phosphatase 98 U/L (35-149); Anion Gap 5 mmol/L (2-16); Blood Urea Nitrogen 22 mg/dL (6-24); CO2 Carbon Dioxide 23 mmol/L (22-32); Calcium 10.4 mg/dL (8.6-10.3); Chloride 105 mmol/L (101-111); Creatinine, Serum 1.47 mg/dL (0.51-0.95); Globulin 2.4 g/dL (2-4); Glucose 164 mg/dL (70-100); Sodium 133 mmol/L (135-145); Total Bilirubin 0.4 mg/dL (0.2-1.0); Total Protein 6.8 g/dL (6.4-8.9); eGFR CKD-EPI 38.2 (>60)
[2024-12-02 23:12] LABS: Potassium Redraw 4.2 mmol/L (3.5-5.0)
[2024-12-02] MEDS: NS 0.9% 1000 ml BAG 1,000 ML IV ONE (23:37)
[2024-12-02 23:41] LABS: Urine Appearance Clear; Urine Bilirubin Negative (Negative); Urine Blood Negative (Negative); Urine Color Light-Yellow; Urine Glucose Negative (Negative); Urine Ketones Negative (Negative); Urine Nitrite Negative (Negative); Urine Protein Negative (Negative); Urine Specific Gravity 1.014 (1.002-1.030); Urine Urobilinogen Negative (Negative)
[2024-12-03 00:04] LABS: TSH Ultra Thyroid Stim Horm 4.58 mcIU/mL (0.34-5.60)
[2024-12-03 01:31] LABS: Calcium (PTH Intact) 10.4 mg/dL (8.6-10.3)
[2024-12-03 04:21] LABS: Folate 10.37 ng/mL (5.90-24.80)
[2024-12-03 04:22] LABS: Vitamin B12 246 pg/mL (180-914)
[2024-12-03] MEDS: Lactated Ringers 1000 ml BAG 1,000 ML IV SCH ×2 (04:56→07:44)
[2024-12-03 07:01] LABS: Hematocrit 36.1 % (35-45); Hemoglobin 12.2 g/dL (11.5-14.3); Mean Corpuscular Hemoglobin 34.6 pg (27-33); Mean Corpuscular Hgb Conc 33.8 g/dL (31-36); Mean Corpuscular Volume 102.4 fL (80-97); Mean Platelet Volume 8.9 fL (7.5-11.2); Platelet Count 247 10^3/uL (150-450); Red Blood Count 3.52 10^6/uL (3.63-4.92); Red Cell Distribution Width 12.4 % (12-17); White Blood Count 10.2 10^3/uL (3.8-11.8)
[2024-12-03 07:38] LABS: Calcium 9.5 mg/dL (8.6-10.3); Creatinine, Serum 1.4 mg/dL (0.51-0.95); Magnesium 2.2 mg/dL (1.9-2.7); Potassium 4.7 mmol/L (3.5-5.0); eGFR CKD-EPI 40.5 (>60)
[2024-12-03] MEDS: Venlafaxine XR 75 mg PO SCH (10:56)
[2024-12-03 15:22] LABS: Calcium 9.6 mg/dL (8.6-10.3); Creatinine, Serum 1.21 mg/dL (0.51-0.95); Potassium 4.5 mmol/L (3.5-5.0); eGFR CKD-EPI 48.2 (>60)
[2024-12-03 17:50] LABS: Creatinine, Serum 1.14 mg/dL (0.51-0.95); Potassium 4.6 mmol/L (3.5-5.0); eGFR CKD-EPI 51.8 (>60)
[2024-12-03] MEDS: Enoxaparin 40 MG/0.4 ML SYR SUBCUT SCH (20:42)
[2024-12-03 21:30] LABS: Creatinine, Serum 1.15 mg/dL (0.51-0.95); Lithium 1.33 mmol/L (0.6-1.2); Potassium 4.4 mmol/L (3.5-5.0); eGFR CKD-EPI 51.2 (>60)
[2024-12-04 03:12] LABS: Calcium 9.7 mg/dL (8.6-10.3); Creatinine, Serum 1.2 mg/dL (0.51-0.95); Lithium 1.2 mmol/L (0.6-1.2); Potassium 4.6 mmol/L (3.5-5.0); eGFR CKD-EPI 48.7 (>60)
[2024-12-04] MEDS: Ondansetron 4 mg VIAL 2 MG/ML 2 ml VIAL IV PRN (05:17)
[2024-12-04 05:58] LABS: ABS Basophils 0.1 10^3/uL (0.0-0.1); ABS Eosinophils 0.7 10^3/uL (0.0-0.5); ABS Lymphocytes 3.3 10^3/uL (1.0-4.8); ABS Monocytes 0.7 10^3/uL (0.0-0.9); ABS Neutrophils 4.2 10^3/uL (1.5-7.6); Eosinophil % 7.9 %; Hematocrit 35.9 % (35-45); Hemoglobin 12.1 g/dL (11.5-14.3); Lymphocyte % 36.2 %; Mean Corpuscular Hemoglobin 34.3 pg (27-33); Mean Corpuscular Hgb Conc 33.6 g/dL (31-36); Mean Corpuscular Volume 101.9 fL (80-97); Mean Platelet Volume 8.8 fL (7.5-11.2); Platelet Count 262 10^3/uL (150-450); Red Blood Count 3.53 10^6/uL (3.63-4.92); Red Cell Distribution Width 12.2 % (12-17)
[2024-12-04 06:28] LABS: Calcium 9.9 mg/dL (8.6-10.3); Creatinine, Serum 1.1 mg/dL (0.51-0.95); Potassium 4.4 mmol/L (3.5-5.0); eGFR CKD-EPI 54.1 (>60)
[2024-12-04 10:20] LABS: Anion Gap 8 mmol/L (2-16); Blood Urea Nitrogen 10 mg/dL (6-24); CO2 Carbon Dioxide 24 mmol/L (22-32); Calcium 9.9 mg/dL (8.6-10.3); Chloride 110 mmol/L (101-111); Creatinine, Serum 1.08 mg/dL (0.51-0.95); Glucose 95 mg/dL (70-100); Lithium 1.07 mmol/L (0.6-1.2); Sodium 142 mmol/L (135-145); eGFR CKD-EPI 55.3 (>60)
[2024-12-04 17:43] LABS: Calcium 9.4 mg/dL (8.6-10.3); Creatinine, Serum 1.11 mg/dL (0.51-0.95); Lithium 0.93 mmol/L (0.6-1.2); Potassium 4.4 mmol/L (3.5-5.0); eGFR CKD-EPI 53.5 (>60)
[2024-12-04 23:32] LABS: Calcium 9.5 mg/dL (8.6-10.3); Creatinine, Serum 1.02 mg/dL (0.51-0.95); Lithium 0.83 mmol/L (0.6-1.2); Potassium 4.2 mmol/L (3.5-5.0); eGFR CKD-EPI 59.2 (>60)
[2024-12-05 05:14] LABS: ABS Basophils 0.1 10^3/uL (0.0-0.1); ABS Eosinophils 0.4 10^3/uL (0.0-0.5); ABS Lymphocytes 2.6 10^3/uL (1.0-4.8); ABS Monocytes 0.6 10^3/uL (0.0-0.9); ABS Neutrophils 4.3 10^3/uL (1.5-7.6); ABS Nucleated RBC 0.01 10^3/ul; Eosinophil % 5.4 %; Hematocrit 33.9 % (35-45); Hemoglobin 11.5 g/dL (11.5-14.3); Lymphocyte % 32.4 %; Mean Corpuscular Hemoglobin 34.3 pg (27-33); Mean Corpuscular Hgb Conc 33.8 g/dL (31-36); Mean Corpuscular Volume 101.3 fL (80-97); Mean Platelet Volume 8.6 fL (7.5-11.2); Nucleated Red Blood Cells % 0.1 %/100WBC (0.0-0.8); Platelet Count 233 10^3/uL (150-450); Red Blood Count 3.35 10^6/uL (3.63-4.92); Red Cell Distribution Width 11.9 % (12-17); White Blood Count 8.1 10^3/uL (3.8-11.8)
[2024-12-05 05:43] LABS: Calcium 9.5 mg/dL (8.6-10.3); Creatinine, Serum 1.11 mg/dL (0.51-0.95); Lithium 0.74 mmol/L (0.6-1.2); Magnesium 1.8 mg/dL (1.9-2.7); Potassium 4.4 mmol/L (3.5-5.0); eGFR CKD-EPI 53.5 (>60)
[2024-12-05] MEDS ORDERED: Magnesium Sulfate 2 gm BAG 2 GM/50 ML BAG IVPB ONE (06:20)
[2024-12-05] MEDS: Magnesium Sulfate 2 gm BAG 2 GM/50 ML BAG IVPB ONE (10:03)
[2024-12-06 05:36] LABS: ABS Basophils 0.1 10^3/uL (0.0-0.1); ABS Eosinophils 0.6 10^3/uL (0.0-0.5); ABS Lymphocytes 3.6 10^3/uL (1.0-4.8); ABS Monocytes 0.8 10^3/uL (0.0-0.9); ABS Neutrophils 5.6 10^3/uL (1.5-7.6); Eosinophil % 6.1 %; Hematocrit 38.7 % (35-45); Hemoglobin 13.2 g/dL (11.5-14.3); Lymphocyte % 33.5 %; Mean Corpuscular Hemoglobin 34.2 pg (27-33); Mean Corpuscular Volume 100.5 fL (80-97); Mean Platelet Volume 8.8 fL (7.5-11.2); Platelet Count 280 10^3/uL (150-450); Red Blood Count 3.85 10^6/uL (3.63-4.92); Red Cell Distribution Width 12.3 % (12-17); White Blood Count 10.7 10^3/uL (3.8-11.8)
[2024-12-06 05:48] LABS: Creatinine, Serum 1.28 mg/dL (0.51-0.95); Magnesium 2.1 mg/dL (1.9-2.7); Potassium 4.6 mmol/L (3.5-5.0); eGFR CKD-EPI 45.1 (>60)
[2024-12-06 14:02] VITALS: BP 125/72
== END 2024-12-06 15:43 ==
LOC: ED 20:46 → EDHOLD 20:46 → SUATTDRO 12-03 00:57 → MEDTELE 12-03 10:58
PROVIDERS: ADMIT Internal Medicine; ATTEND Internal Medicine